=== PATIENT | female | born 1980 | race Caucasian/White ===

== ENCOUNTER 2017-12-15 06:07 | Day surgery (SDC) | payer OTHER ==
[2017-12-15 06:21] LABS: ADD MAN DIFF? NO
[2017-12-15 06:33] LABS: WHITE BLOOD COUNT 11.6 10^3/ul (4.8-10.8)
[2017-12-15 06:33] LABS: BASOPHILS % 0.3 % (0.0-2.0); EOSINOPHILS # 0.3 10^3/ul (0.0-0.5); EOSINOPHILS % 2.2 % (0.0-7.0); HEMATOCRIT 38.8 % (37.0-47.0); LYMPHOCYTES # 3.9 10^3/ul (0.8-2.9); LYMPHOCYTES % 33.8 % (15.0-51.0); MEAN CORPUSCULAR HEMOGLOBIN 29.1 pg (29.0-33.0); MEAN CORPUSCULAR HGB CONC 33.5 g/dl (32.0-37.0); MEAN PLATELET VOLUME 9.6 fl (7.4-10.4); MONOCYTE # 0.6 10^3/ul (0.3-0.9); NEUTROPHIL # 6.8 10^3/ul (1.6-7.5); NEUTROPHILS % 58.1 % (39.0-77.0); PLATELET COUNT 300 10^3/UL (140-415); RED BLOOD COUNT 4.46 10^6/ul (4.20-5.40); RED CELL DISTRIBUTION WIDTH 13.8 % (11.5-14.5)
[2017-12-15] MEDS ORDERED: MIDAZOLAM 1 MG/ML 2 ML INJ (07:27)
[2017-12-15] MEDS ORDERED: FENTAnyl 50 MCG/ML VIAL (07:27)
[2017-12-15] MEDS ORDERED: PROPOFOL 20 ML (07:30)
[2017-12-15] MEDS ORDERED: LIDOCAINE 100 MG SYRINGE (07:30)
[2017-12-15] MEDS ORDERED: ONDANSETRON 4 MG INJ (07:31)
[2017-12-15] MEDS ORDERED: KETOROLAC 30 MG INJ (07:57)
[2017-12-15] MEDS ORDERED: ONDANSETRON 4 MG INJ IV (08:30)
[2017-12-15] MEDS ORDERED: METOCLOPRAMIDE 10 MG INJ IV (08:30)
[2017-12-15] MEDS ORDERED: HYDROmorphONE (0.2 MG/ML) 10ML SYG IV ×2 (08:30)
[2017-12-15] MEDS ORDERED: FENTAnyl 50 MCG/ML VIAL IV ×2 (08:30)
== END 2017-12-15 10:35 | disposition home or self-care (01) ==
LOC: SDS 06:07
DX: Z30.2 Encounter for sterilization (principal)
CPT/HCPCS: 58565; 85025; 86850; 86900; 86901